=== PATIENT | male | born 1945 | race Caucasian/White ===

== ENCOUNTER 2016-11-10 15:17 | Inpatient (IN) | payer MEDICARE ==
[2016-11-17] MEDS ORDERED: ASA CHILDREN'S81 MG PO (07:13)
[2016-11-17] MEDS ORDERED: COLACE-DPS100 MG PO (07:14)
[2016-11-17] MEDS ORDERED: AUGMENTIN 250250 MG PO (07:14)
[2016-11-17] MEDS ORDERED: GLUCOTROL DPS10 MG PO (07:14)
[2016-11-17] MEDS ORDERED: FLOMAX DPS0.4 MG PO (07:14)
[2016-11-17] MEDS ORDERED: PROTONIX40 MG PO (07:15)
[2016-11-17] MEDS ORDERED: XARELTO15 MG PO (07:15)
[2016-11-17] MEDS ORDERED: PRAVACHOL40 MG PO (07:15)
[2016-11-17] MEDS ORDERED: XARELTO20 MG PO (07:15)
[2016-11-17] MEDS ORDERED: LOPRESSOR DPS50 MG PO (07:15)
[2016-11-17] MEDS ORDERED: LEVEMIR100 UNIT/1 SQ (07:16)
[2016-11-17] MEDS ORDERED: TEARS NATURAL D15 ML OU (07:16)
[2016-11-17] MEDS ORDERED: NOVOLOG100 UNIT/2 SQ (07:18)
[2016-11-17] MEDS ORDERED: OXY IR DPS5 MG PO (07:20)
[2016-11-17] MEDS ORDERED: GLUTOSE 1537.5 GM PO (07:20)
[2016-11-17] MEDS ORDERED: TYLENOL DPS325 MG PO (07:20)
[2016-11-17] MEDS ORDERED: MAALOX DPS30 ML PO (07:20)
[2016-11-17] MEDS ORDERED: GLUCAGON HCL1 MG IM (07:21)
[2016-11-17] MEDS ORDERED: DULCOLAX-DPS10 MG PO (07:22)
[2016-11-17] MEDS ORDERED: DULCOLAX-DPS10 MG PR (07:22)
[2016-11-17] MEDS ORDERED: ACCU-CHEK1 EAC1 SQ (07:23)
[2016-11-17] MEDS ORDERED: PRILOSEC DPS20 MG PO (07:25)
[2016-11-17] MEDS ORDERED: GLUCOPHAGE1000 MG PO (07:27)
== END 2016-11-15 10:38 | DRG 300 ==
DX: I82.412 Acute embolism and thrombosis of left femoral vein (principal); T81.4XXA Infection following a procedure, initial encounter; F05 Delirium due to known physiological condition; L03.116 Cellulitis of left lower limb; E11.9 Type 2 diabetes mellitus without complications; D64.9 Anemia, unspecified; I10 Essential (primary) hypertension; I48.0 Paroxysmal atrial fibrillation; Z47.1 Aftercare following joint replacement surgery; Z96.652 Presence of left artificial knee joint; N40.0 Benign prostatic hyperplasia without lower urinary tract symptoms; K21.9 Gastro-esophageal reflux disease without esophagitis; E87.6 Hypokalemia; E78.5 Hyperlipidemia, unspecified; G47.33 Obstructive sleep apnea (adult) (pediatric); Z86.73 Personal history of transient ischemic attack (TIA), and cerebral infarction without residual deficits; Z79.4 Long term (current) use of insulin; Z87.442 Personal history of urinary calculi; Z79.82 Long term (current) use of aspirin; Z87.891 Personal history of nicotine dependence